=== PATIENT | male | born 1990 | race Two or more races ===

== ENCOUNTER 2023-08-19 14:47 | Emergency (ER) | payer MEDICAID ==
[~2023-08-19] VITALS: Ht 170.2 cm; Wt 77.0 kg
[2023-08-19 15:07] VITALS: TEMP 98.7
[2023-08-19 21:02] VITALS: BP 138/86; PULSE 55; RESP 16; O2SAT 100
[2023-08-19] MEDS ORDERED: LIDOcaine 1% W/epiNEPHrine 1:100,000 20ml vial IJ ONE (21:55)
[2023-08-19] MEDS ORDERED: TETanus/Pertussis (Acell)/Diphther VAC/PF (Tdap-Adult) 0.5ml syringe IMVAC ONE (21:55)
== END 2023-08-19 23:12 | disposition home or self-care (01) ==
LOC: ER 14:49
DX: S01.01XA Laceration without foreign body of scalp, initial encounter (principal); X58.XXXA Exposure to other specified factors, initial encounter; Y93.89 Activity, other specified; Y92.89 Other specified places as the place of occurrence of the external cause; Y99.8 Other external cause status
CPT/HCPCS: 12032; 70450; 90471; 90715; 99285; J7030; A6449

== ENCOUNTER 2023-09-01 11:11 | Emergency (ER) | payer MEDICAID ==
[~2023-09-01] VITALS: Ht 170.2 cm; Wt 79.5 kg
[2023-09-01 11:14] VITALS: BP 154/97; PULSE 61; TEMP 97.2; O2SAT 100
[2023-09-01 11:42] VITALS: RESP 16
--- NOTE | 2023-09-01 11:44 | NUR ---
AIRWAY PATENT. RESPIRATIONS EVEN AND UNLABORED. RADIAL PULSE 66.
--- NOTE | 2023-09-01 11:58 | NUR ---
PT CHART REVIEWED BY WADE RN AND AGREE WITH RIBBON HAND ASSESSMENT
--- NOTE | 2023-09-01 12:08 | NUR ---
3 sutures removed, top of scalp
== END 2023-09-01 12:15 | disposition home or self-care (01) ==
LOC: ER 11:12
DX: S01.91XD Laceration without foreign body of unspecified part of head, subsequent encounter (principal); W22.8XXD Striking against or struck by other objects, subsequent encounter
CPT/HCPCS: 99284

== ENCOUNTER 2023-12-01 19:49 | Emergency (ER) | payer MEDICAID ==
[~2023-12-01] VITALS: Ht 170.2 cm; Wt 77.3 kg
[2023-12-01] MEDS ORDERED: acetaminophen 325mg tablet PO ONE (20:00)
[2023-12-01 20:52] LABS: MONOTEST NEGATIVE (Neg)
[2023-12-01 21:35] LABS: STREP A SCREEN NEGATIVE (Neg)
[2023-12-01 22:01] VITALS: BP 145/72; PULSE 82; RESP 16; TEMP 100.6; O2SAT 100
== END 2023-12-01 22:36 | disposition home or self-care (01) ==
LOC: ER 19:49
DX: J35.1 Hypertrophy of tonsils (principal); Z20.822 Contact with and (suspected) exposure to COVID-19
CPT/HCPCS: 36415; 86308; 87081; 87502; 87503; 87811; 87880; 99283